=== PATIENT | male | born 1985 | race Caucasian/White ===

== ENCOUNTER 2018-02-10 07:05 | Emergency (ER) | payer OTHER ==
[~2018-02-10] VITALS: Ht 190.5 cm; Wt 108.9 kg
[~2018-02-10 07:05] MED LIST: FLEXERIL 10MG (10 MG PO; FLEXERIL10 MG PO; MOBIC15 MG PO
--- NOTE | 2018-02-10 07:08 | ED GENERAL ADULT ---
History of Present Illness General Chief Complaint: Animal/Insect Bite Stated Complaint: CAT BITE ON THURSDAY/? INFECTION RT LEG Source: patient Exam Limitations: no limitations Vital Signs & Intake/Output Vital Signs & Intake/Output Vital Signs Date Time Temp Pulse Resp B/P B/P Pulse O2 O2 Flow FiO2 Mean Ox Delivery Rate 02/10 0712 98.4 94 18 127/84 99 Room Air Allergies Coded Allergies: NO KNOWN ALLERGIES (06/23/12) Reconcile Medications Cyclobenzaprine (Flexeril 10MG (ER)) 10 MG TAB 1 TAB PO TID PRN PAIN CYCLOBENZAPRINE HCL (Flexeril) 10 MG TABLET 1 TAB PO TID PRN PAIN Meloxicam (Mobic) 15 MG TAB 1 TAB PO DAILY PRN PAIN Meloxicam (Mobic) 15 MG TAB 1 TAB PO DAILY PRN PAIN Triage Nurses Notes Reviewed? yes Onset: Abrupt Duration: day(s): Timing: recent history HPI: 02/10/18 7:33 AM 32-year-old male presents to the emergency department for wound check. He is status post cat bite by his own cat on Thursday. He developed redness to the right leg. He also had fever. He was seen in urgent care and started on Augmentin. He was told to come in for wound check should the redness start extending beyond the margins. He has a softball size area of erythema on the right lower aspect of his leg above the right lateral malleolus. He admits to fever yesterday. He denies any fever today. There is less pain. The wound is more pink. Past History Medical History Any Pertinent Medical History? see below for history Musculoskeletal: BACK PAIN Surgical History Surgical History: non-contributory Psychosocial History What is your primary language Arabic Family History Hx Contributory? No Review of Systems Review of Systems Constitutional: Reports: see HPI. EENTM: Reports: no symptoms. Respiratory: Reports: no symptoms. Cardiovascular: Reports: no symptoms. GI: Reports: no symptoms. Genitourinary: Reports: no symptoms. Musculoskeletal: Reports: no symptoms. Skin: Reports: see HPI. Neurological/Psychological: Reports: no symptoms. Hematologic/Endocrine: Reports: no symptoms. Immunologic/Allergic: Reports: no symptoms. Physical Exam Physical Exam General Appearance: well developed/nourished, alert, awake, anxious Head: atraumatic, normal appearance Eyes: Bilateral: normal appearance, PERRL, EOMI. Ears, Nose, Throat: normal ENT inspection Neck: normal inspection, supple, full range of motion Respiratory: normal breath sounds, chest non-tender, no respiratory distress Cardiovascular: regular rate/rhythm Peripheral Pulses: 4+ tibialis posterior (R) Gastrointestinal: soft, non-tender Back: normal range of motion Extremities: Softball size area of erythema, above right lateral malleolus, nontender, no swelling Neurologic/Psych: no motor/sensory deficits, awake, alert, oriented x 3 Skin: rash Core Measures ACS in differential dx? No CVA/TIA Diagnosis: No Sepsis Present: No Sepsis Focused Exam Completed? No Progress Differential Diagnoses I considered the following diagnoses in my evaluation of the patient: [ Cellulitis, abscess, foreign body, necrotizing fasciitis] The wound was palpated and closely inspected. There was no evidence of foreign body Plan of Care: He will follow-up with his doctor on Thursday or return to the emergency department if worse. He will continue the Augmentin as prescribed. Initial ED EKG: none Departure Departure Disposition: STILL A PATIENT Condition: Stable Clinical Impression Primary Impression: Cellulitis Referrals: Chay REYNOSO,Junior Dyson (PCP/Family) Departure Forms: Customer Survey General Discharge Information Critical Care Note Critical Care Note Critical Care Time: non-applicable
[2018-02-10 07:12] VITALS: BP 127/84
[2018-02-10] MEDS ORDERED: ESCITALOPRAM OX10 MG PO (07:45)
== END 2018-02-10 07:54 ==
LOC: ERH 07:05
DX: L03.115 Cellulitis of right lower limb (principal)
CPT/HCPCS: 99282